=== PATIENT | female | born 1985 | race Caucasian/White ===

== ENCOUNTER 2016-11-09 17:35 | Emergency (ER) | payer BC, OTHER ==
[~2016-11-09] VITALS: Ht 165.1 cm; Wt 118.9 kg
[2016-11-09 17:40] VITALS: TEMP 36.7; Ht 165.1 cm; Wt 118.9 kg
[2016-11-09] MEDS ORDERED: SODIUM CHLORIDE 0.9% 1000ML 500 ML IV STA (18:25)
[2016-11-09] MEDS ORDERED: ONDANSETRON INJ 2 MG/ML 2 ML VIAL IV STA (18:25)
[2016-11-09] MEDS ORDERED: SODIUM CHLORIDE 0.9% 1000ML 1,000 ML IV STA (18:25)
[2016-11-09 18:48] LABS: BASO % 0.1 %; BASO ABS # 0.01 K/uL (0-0.2); COMPLETE YES; HEMATOCRIT 45.6 % (37-47); IG% 0.2 %; LYMPH % 29.2 %; LYMPH ABS # 2.93 K/uL (1.2-3.4); MEAN CELL VOLUME 86.7 fL (80-100); MEAN CORPUSCULAR HGB CONC 34.6 g/dl (32-36); MEAN PLATELET VOLUME 10.3 fL (7.4-10.4); NEUT % 62.5 %; PLATELET COUNT 247 K/uL (130-400); RED BLOOD COUNT 5.26 M/uL (4.2-5.4); WHITE BLOOD COUNT 10.04 K/uL (4.8-10.8)
--- NOTE | 2016-11-09 18:51 | DIAGNOSTIC IMAGING REPORT ---
CHEST ONE VIEW PORTABLE CLINICAL HISTORY: Abdominal pain. COMPARISON STUDY: No previous studies for comparison. FINDINGS: Lung volumes are normal. Lungs are clear. There is no pneumothorax or pleural effusion. Cardiac size is normal. Mediastinal contours are normal. There is no evidence of pulmonary edema. IMPRESSION: No acute cardiopulmonary findings. Electronically signed by: Gurpreet Gandhi M.D. 11/09/2016 6:50 PM Dictated Date/Time: 11/09/2016 6:49 PM
--- NOTE | 2016-11-09 18:58 | EMERGENCY ROOM VISIT NOTE ---
History Report prepared by Rickie: Abeba Charles Under the Supervision of: Dr. Wilfredo Kevin M.D. First contact with patient: 18:23 Chief Complaint: ABDOMINAL PAIN Stated Complaint: RIGHT FLANK PAIN Nursing Triage Summary: Patient reports right sided abd pain that started approx 15 minutes ago with nausea and vomiting. Patient states she has had problems with her gal bladder in the past. History of Present Illness The patient is a 31 year old female who presents to the Emergency Room with complaints of waxing and waning right upper quadrant abdominal pain starting about an hour and a half ago. She reports intermittent pain radiation to the back. At its worst, she rates a pain intensity of 10/10. She currently rates a pain intensity of 2/10. She also complains of nausea and vomiting. She has worsening symptoms with eating. She has a history of gallstones and reports similar symptoms today. She denies fevers, chills, urinary symptoms, diarrhea, constipation, or any other complaints. She denies any history of abdominal surgeries. Source of History: patient Onset: about an hour and a half ago Position: abdomen (RUQ) Symptom Intensity: 2/10 currently Timing: waxes/wanes Modifying Factors (Worsening): eating Associated Symptoms: + nausea, + vomiting, No chills, No diarrhea, No fevers , No urinary symptoms Review of Systems See HPI for pertinent positives & negatives. A total of 10 systems reviewed and were otherwise negative. Past Medical & Surgical Medical Problems: (1) Asthma (2) Diabetes Family History Diabetes mellitus Hypertension Seizures Social History Smoking Status: Current Every Day Smoker Alcohol Use: occasionally Marital Status: in relationship Housing Status: lives with family Occupation Status: employed Current/Historical Medications Scheduled Ondasetron Odt (Zofran Odt), 4 MG SL Q6H Pantoprazole (Protonix), 20 MG PO DAILY Scheduled PRN Ipratropium [place] (Atrovent Hfa), 2 PUFFS INH Q6 PRN for Wheezing Allergies Coded Allergies: No Known Allergies (Unverified , 11/09/16) Physical Exam Vital Signs Date Time Temp Pulse Resp B/P Pulse Ox O2 Delivery O2 Flow Rate FiO2 11/09/16 19:24 64 18 132/49 98 Room Air 11/09/16 17:40 36.7 83 20 129/77 98 Room Air Physical Exam GENERAL: Patient is in no acute distress. HEENT: No acute trauma, normocephalic atraumatic, mucous membranes moist, no nasal congestion, no scleral icterus. NECK: No stridor, no adenopathy, no meningismus, trachea is midline. LUNGS: Clear to auscultation bilaterally, no wheeze, no rhonchi, breath sounds equal. HEART: Without murmurs gallops or rubs, regular rate and rhythm. ABDOMEN: Soft, moderately tender in the right upper quadrant, bowel sounds positive, no hernias, no peritonitis. EXTREMITIES: No cyanosis or edema, full range of motion of all the joints without pain or difficulty, no signs for acute trauma. NEUROLOGIC: Oriented x 3, no acute motor or sensory deficits, no focal weakness. SKIN: No rash, no jaundice, no diaphoresis. Medical Decision & Procedures ER Provider Diagnostic Interpretation: X ray results and stated below per my interpretation and radiologist interpretation. US results and stated below per my review and radiologist interpretation: CHEST ONE VIEW PORTABLE CLINICAL HISTORY: Abdominal pain. COMPARISON STUDY: No previous studies for comparison. FINDINGS: Lung volumes are normal. Lungs are clear. There is no pneumothorax or pleural effusion. Cardiac size is normal. Mediastinal contours are normal. There is no evidence of pulmonary edema. IMPRESSION: No acute cardiopulmonary findings. Electronically signed by: Gurpreet Gandhi M.D. 11/09/2016 6:50 PM Dictated Date/Time: 11/09/2016 6:49 PM ABDOMINAL ULTRASOUND, RIGHT UPPER QUADRANT HISTORY: Abdominal pain.. COMPARISON: CT of the abdomen and pelvis January 15, 2016 and right upper quadrant ultrasound January 15, 2016. FINDINGS: Liver is sonographically normal. The study is compromised by suboptimal penetration. The pancreatic body is normal. The head and tail are obscured. Borderline dilatation of the common bile duct is unchanged. No definite gallstones are identified. There may be adenomyomatosis of the gallbladder wall. There is no right hydronephrosis. IMPRESSION: 1. Study compromised by suboptimal penetration. 2. No gallstones identified although gallbladder partially obscured. No change in borderline dilatation of the common bile duct. Electronically signed by: Gurpreet Gandhi M.D. 11/09/2016 8:21 PM Dictated Date/Time: 11/09/2016 8:18 PM Laboratory Results 11/09/16 18:36 Red Blood Count 5.26, Mean Corpuscular Volume 86.7, Mean Corpuscular Hemoglobin 30.0, Mean Corpuscular Hemoglobin Concent 34.6, Mean Platelet Volume 10.3, Neutrophils (%) (Auto) 62.5, Lymphocytes (%) (Auto) 29.2, Monocytes (%) (Auto) 6.0, Eosinophils (%) (Auto) 2.0, Basophils (%) (Auto) 0.1, Neutrophils # (Auto) 6.28, Lymphocytes # (Auto) 2.93, Monocytes # (Auto) 0.60, Eosinophils # (Auto) 0.20, Basophils # (Auto) 0.01 11/09/16 18:36 Test 11/09/16 00:00 11/09/16 18:36 Urine Color YELLOW Urine Appearance CLOUDY (CLEAR) Urine pH 5.0 (4.5-7.5) Urine Specific [place] 1.035 (1.000-1.030) Urine Protein NEG (NEG) Urine Glucose (UA) NEG (NEG) Urine Ketones NEG (NEG) Urine Occult Blood NEG (NEG) Urine Nitrite NEG (NEG) Urine Bilirubin NEG (NEG) Urine Urobilinogen NEG (NEG) Urine Leukocyte Esterase NEG (NEG) Urine WBC (Auto) 5-10 /hpf (0-5) Urine RBC (Auto) 0-4 /hpf (0-4) Urine Hyaline Casts (Auto) 5-10 /lpf (0-5) Urine Epithelial Cells (Auto) >30 /lpf (0-5) Urine Bacteria (Auto) 1+ (NEG) White Blood Count 10.04 K/uL (4.8-10.8) Red Blood Count 5.26 M/uL (4.2-5.4) Hemoglobin 15.8 g/dL (12.0-16.0) Hematocrit 45.6 % (37-47) Mean Corpuscular Volume 86.7 fL (80-100) Mean Corpuscular Hemoglobin 30.0 pg (25-34) Mean Corpuscular Hemoglobin Concent 34.6 g/dl (32-36) Platelet Count 247 K/uL (130-400) Mean Platelet Volume 10.3 fL (7.4-10.4) Neutrophils (%) (Auto) 62.5 % Lymphocytes (%) (Auto) 29.2 % Monocytes (%) (Auto) 6.0 % Eosinophils (%) (Auto) 2.0 % Basophils (%) (Auto) 0.1 % Neutrophils # (Auto) 6.28 K/uL (1.4-6.5) Lymphocytes # (Auto) 2.93 K/uL (1.2-3.4) Monocytes # (Auto) 0.60 K/uL (0.11-0.59) Eosinophils # (Auto) 0.20 K/uL (0-0.5) Basophils # (Auto) 0.01 K/uL (0-0.2) RDW Standard Deviation 44.5 fL (36.4-46.3) RDW Coefficient of Variation 14.0 % (11.5-14.5) Immature Granulocyte % (Auto) 0.2 % Immature Granulocyte # (Auto) 0.02 K/uL (0.00-0.02) Anion Gap 6.0 mmol/L (3-11) Est Creatinine Clear Calc Drug Dose 172.1 ml/min Estimated GFR () 138.8 Estimated GFR (Non- 119.8 BUN/Creatinine Ratio 30.5 (10-20) Calcium Level 9.1 mg/dl (8.5-10.1) Total Bilirubin 0.2 mg/dl (0.2-1) Aspartate Amino Transf (AST/SGOT) 32 U/L (15-37) Alanine Aminotransferase (ALT/SGPT) 30 U/L (12-78) Alkaline Phosphatase 79 U/L (45-117) Total Protein 7.3 gm/dl (6.4-8.2) Albumin 3.7 gm/dl (3.4-5.0) Globulin 3.6 gm/dl (2.5-4.0) Albumin/Globulin Ratio 1.0 (0.9-2) Lipase 167 U/L (73-393) Laboratory results reviewed by me. Medications Administered Medications (Trade) Dose Ordered Sig/Awais Route Start Time Stop Time Status Last Admin Dose Admin Sodium Chloride (Nss 1000ml) 500 ml @ 999 mls/hr Q31M STAT IV 11/09/16 18:25 11/09/16 18:55 DC 11/09/16 18:44 999 MLS/HR Ondansetron HCl 4 mg 4 mg NOW STAT IV 11/09/16 18:25 11/09/16 18:30 DC 11/09/16 18:43 4 MG Sodium Chloride (Nss 1000ml) 1,000 ml @ 200 mls/hr Q5H STAT IV 11/09/16 18:25 11/09/16 23:24 11/09/16 18:45 200 MLS/HR ED Course 1822: The patient was evaluated in room B05. A complete history and physical exam was performed. 1824: Sodium Chloride 1000 ml @ 200 mls/hr IV, Zofran Inj 4 mg IV, Sodium Chloride 500 ml @ 999 mls/hr IV 2024: Reevaluated the patient. Discussed results and discharge instructions: She verbalized understanding and agreement. The patient is ready for discharge. Medical Decision Differential diagnosis includes but is not limited to biliary colic, acute cholecystitis, UTI, musculoskeletal pain, hernia, pancreatitis, pneumonia, appendicitis. There is no leukocytosis or concerning anemia. No significant electrolyte abnormality, kidney failure, hepatitis or pancreatitis. Urinalysis shows contamination, no obvious infection. Chest film does not show free air or pneumonia. Gallbladder ultrasound shows no evidence for acute cholecystitis or gallstones. She was not febrile or toxic. There is no peritonitis on exam. The patient was given IV Zofran, IV saline. She did not need anything for pain. The patient looks well and is doing much better. The cause for the pain is unclear. She is being discharged with Protonix for stomach upset, some Zofran for nausea, a bland diet. She will follow with her doctors office in the next few weeks, she can return here for worsening symptoms or if not improving. Impression Primary Impression: RUQ abdominal pain Additional Impression: Vomiting Scribe Attestation The scribe's documentation has been prepared under my direction and personally reviewed by me in its entirety. I confirm that the note above accurately reflects all work, treatment, procedures, and medical decision making performed by me. Departure Information Dispostion Home / Self-Care Prescriptions Ondasetron Odt (ZOFRAN ODT) 4 Mg Tab 4 MG SL Q6H for Nausea, #12 TAB Prov: Wilfredo Kevin M.D. 11/09/16 Pantoprazole (Protonix) 20 Mg Tab 20 MG PO DAILY, #30 TAB Prov: Wilfredo Kevin M.D. 11/09/16 Referrals No Doctor, Assigned (PCP) Forms Call Back Authorization, HOME CARE DOCUMENTATION FORM, IMPORTANT VISIT INFORMATION Patient Instructions My [facility] Additional Instructions see your doctor as scheduled return for fever or worsening symptoms use protonix for the stomach daily zofran 1-2 tab every 6 hours for nausea bland diet---crackers, soup, toast, gatorade testing today was ok as discussed Problem Qualifiers
[2016-11-09 19:01] LABS: BUN/CREATININE RATIO 30.5 (10-20); CALCIUM 9.1 mg/dl (8.5-10.1); CREATININE 0.6 mg/dl (0.60-1.20); POTASSIUM 3.9 mmol/L (3.5-5.1)
[2016-11-09 19:40] LABS: MANUAL MICROSCOPIC REQUIRED? NO; REVIEW REQ? NO; URINE APPEARANCE CLOUDY (CLEAR); URINE BILIRUBIN NEG (NEG); URINE COLOR YELLOW; URINE EPITHELIAL CELL AUTO >30 /lpf (0-5); URINE NITRITE NEG (NEG); URINE SPECIFIC GRAVITY 1.035 (1.000-1.030); UROBILINOGEN NEG (NEG); ZZUR CULT IF INDIC CLEAN CATCH YES
[2016-11-09] MEDS ORDERED: ATRIN INH (19:40)
--- NOTE | 2016-11-09 20:22 | DIAGNOSTIC IMAGING REPORT ---
ABDOMINAL ULTRASOUND, RIGHT UPPER QUADRANT HISTORY: Abdominal pain.. COMPARISON: CT of the abdomen and pelvis January 15, 2016 and right upper quadrant ultrasound January 15, 2016. FINDINGS: Liver is sonographically normal. The study is compromised by suboptimal penetration. The pancreatic body is normal. The head and tail are obscured. Borderline dilatation of the common bile duct is unchanged. No definite gallstones are identified. There may be adenomyomatosis of the gallbladder wall. There is no right hydronephrosis. IMPRESSION: 1. Study compromised by suboptimal penetration. 2. No gallstones identified although gallbladder partially obscured. No change in borderline dilatation of the common bile duct. Electronically signed by: Gurpreet Gandhi M.D. 11/09/2016 8:21 PM Dictated Date/Time: 11/09/2016 8:18 PM
[2016-11-09] MEDS ORDERED: PRT/20 PO (20:30)
[2016-11-09] MEDS ORDERED: ONDA4TAB10 SL (20:30)
[2016-11-09 20:45] VITALS: BP 123/78; PULSE 73; O2SAT 97
[2017-01-31] MEDS ORDERED: OXYC-57 PO (09:56)
== END 2016-11-09 20:46 | disposition home or self-care (01) ==
LOC: C.EDB 17:36
DX: R10.11 Right upper quadrant pain (principal); R11.2 Nausea with vomiting, unspecified; J45.909 Unspecified asthma, uncomplicated; E11.9 Type 2 diabetes mellitus without complications; F17.200 Nicotine dependence, unspecified, uncomplicated; Z83.3 Family history of diabetes mellitus; Z82.49 Family history of ischemic heart disease and other diseases of the circulatory system; Z82.0 Family history of epilepsy and other diseases of the nervous system

== ENCOUNTER → 2017-01-31 | Day surgery (SDC) | payer OTHER ==
[2017-01-26 08:21] VITALS: Ht 165.1 cm; Wt 122.2 kg
--- NOTE | 2017-01-26 08:44 | PAT Medication Instructions ---
Service Date Jan 26, 2017. Current Home Medication List Ipratropium [place] (Atrovent Hfa), 2 PUFFS INH Q6 PRN for Wheezing Medication Instructions For Your Scheduled Surgery - Take the following medications the morning of surgery if needed: Ipratropium [place] (Atrovent Hfa), 2 PUFFS INH Q6 PRN for Wheezing - Take the following medications as scheduled the night before surgery: Ipratropium [place] (Atrovent Hfa), 2 PUFFS INH Q6 PRN for Wheezing Nothing to eat or drink after midnight If you have any questions please call us at [phone] or [phone] or [phone]
[~2017-01-31] VITALS: Ht 165.1 cm; Wt 122.2 kg
[~2017-01-31] MED LIST: ATRIN INH; ATROPINE SULFATE 0.1 MG/ML 5ML SYR IV PRN; BACITRACIN OINT 15 GM TUBE ONE; BUPIVACAINE 0.5 % 5 MG/1 ML MPF 30ML VIAL ONE; CEFAZOLIN 3000 MG/65 ML D5W IV SCH; CEFAZOLIN IV 2,000 MG/60 ML D5W IV ONE; DEXAMETHASONE SOD INJ 4 MG/ML VIAL ONE; EpHEDrine SULFATE INJ 50 MG/ML AMP IV PRN; FENTANYL CITRATE INJ 50 MCG/1 ML 2 ML VIAL ONE; GLYCOPYRROLATE INJ 0.2 MG/ML VIAL ONE; HYDROmorphone INJ 1 MG/ML SYR IV PRN; KETOROLAC TROMETHAMINE 30 MG/ML VIAL ONE; LACTATED RINGER'S 1000ML 1,000 ML IV SCH; LIDOCAINE HCL 1% 20 ML VIAL ONE; LIDOCAINE HCL 2% 2 ML VIAL (20MG/ML) ONE; MIDAZOLAM HCL 1 MG/ML 2ML VIAL ONE; MoRPHine SULFATE 2 MG/ML CARP IV PRN; MoRPHine SULFATE 4 MG/ML 1 ML CARP\\VIAL IV PRN; NEOSTIGMINE METHYLSULFATE 5 MG/5 ML SYR ONE; ONDANSETRON INJ 2 MG/ML 2 ML VIAL IV PRN; ONDANSETRON INJ 2 MG/ML 2 ML VIAL ONE; OXYC-57 PO; OXYCODONE/ACETAMINOPHEN 5-325 TAB PO PRN; PROPOFOL IV EMULSION 10 MG/ML 20 ML VIAL IV ONE; ROCURONIUM BROMIDE 10 MG/ML 5 ML VIAL ONE
[2017-01-31 07:15] VITALS: BP 133/62; PULSE 87; TEMP 37.2; O2SAT 97
--- NOTE | 2017-01-31 07:57 | History & Physical Bridge Note ---
H&P Re-Evaluation Bridge Note: I have examined the patient, reviewed the History & Physical and in the interval since the performance of the History & Physical I have noted the following changes of clinical significance: No changes noted
--- NOTE | 2017-01-31 09:47 | [facility] Post Operative Brief Note ---
Immediate Operative Summary Operative Date Jan 31, 2017. Pre-Operative Diagnosis cholelithiasis; chronic cholecystitis Post-Operative Diagnosis cholelithiasis; chronic cholecystitis Procedure(s) Performed Laparoscopic Cholecystectomy Surgeon Dr. Milvia Yost Nursing Informatics Specialist Surgeon(s) Brisa Hernadez PA-C Estimated Blood Loss 10ML Findings chronic cholecystitis, cholelithiasis Specimens A. Gallbladder Drains none Anesthesia general Complication(s) None Disposition Recovery Room / PACU
--- NOTE | 2017-01-31 09:59 | Discharge Instructions ---
Discharge Instructions Date of Service Jan 31, 2017. Admission Reason for Admission: Cholelithiasis Discharge Discharge Diagnosis / Problem: Cholelithiasis, s/p laparoscopic cholecystectomy Discharge Goals Goal(s): Decrease discomfort Activity Recommendations Activity Limitations: as noted below No heavy lifting over 20 pounds for 2 weeks No strenuous activity until cleared by surgeon walking and light activity is encouraged No driving while taking narcotic pain medication No submerging incisions underwater for 2 weeks Instructions / Follow-Up Instructions / Follow-Up You may shower in 3 days, remove dressings and then shower. Sponge bath and wash hair in meantime. Leave steri strips on incisions for 10 days, they may fall off before that is okay. Follow-up with Dr. Yost in 1 week, please call office at [phone] if you do not already have an appointment Current Hospital Diet Patient's current hospital diet: Discharge Diet Recommended Diet: Regular Diet, Low Fat Diet Procedures Procedures Performed: Laparoscopic Cholecystectomy Pending Studies Studies pending at discharge: no Medical Emergencies . Who to Call and When: Medical Emergencies: If at any time you feel your situation is an emergency, please call 911 immediately. . Non-Emergent Contact Non-Emergency issues call your: Primary Care Provider, Surgeon Call Non-Emergent contact if: you have a fever, temperature is above 101.5, your pain is not controlled, your pain is worsening, wound has increased drainage, wound has increased redness, wound has increased pain . "Provider Documentation" section prepared by Alma Hernadez. . VTE Core Measure Inpt VTE Proph given/why not?: SCD's [place] Drug Monitoring Program Search Results: patient reviewed within database, no issues identified
[2017-01-31] MEDS: FENTANYL CITRATE INJ 50 MCG/1 ML 2 ML VIAL IV PRN ×2 (10:15→10:20)
[2017-01-31 10:45] VITALS: BP 120/68; PULSE 55; TEMP 36.5; O2SAT 95
--- NOTE | 2017-01-31 10:45 | Anesthesiology Progress Note ---
Anesthesia Post Op Note Date & Time Jan 31, 2017 at 10:44 Vital Signs Pain Intensity: 0 Vital Signs Past 12 Hours Date Time Temp Pulse Resp B/P (MAP) Pulse Ox O2 Delivery O2 Flow Rate FiO2 01/31/17 10:35 36.3 59 18 116/55 94 Nasal Cannula 01/31/17 10:25 63 20 129/51 93 Nasal Cannula 01/31/17 10:15 56 16 128/61 100 Mask 10 01/31/17 10:05 58 16 121/72 100 Mask 10 01/31/17 09:58 36.4 57 16 123/87 99 Mask 10 01/31/17 07:15 37.2 87 18 133/62 (85) 97 Room Air Notes Mental Status: alert / awake / arousable, participated in evaluation Pt Amnestic to Procedure: Yes Nausea / Vomiting: adequately controlled Pain: adequately controlled Airway Patency, RR, SpO2: stable & adequate BP & HR: stable & adequate Hydration State: stable & adequate Anesthetic Complications: no major complications apparent
[2017-01-31 11:15] VITALS: BP 106/58; PULSE 54; TEMP 36.8; O2SAT 97
[2017-01-31 11:45] VITALS: BP 112/65; PULSE 66; TEMP 36.7; O2SAT 96
--- NOTE | 2017-02-09 14:24 | [facility] Operative Report ---
Operative Report Operative Date January 31, 2017. Pre-Operative Diagnosis cholelithiasis; chronic cholecystitis Post-Operative Diagnosis cholelithiasis; chronic cholecystitis Procedure(s) Performed Laparoscopic Cholecystectomy Surgeon Dr. Milvia Yost Shell Grader Surgeon(s) Brisa Hernadez PA-C Estimated Blood Loss 10ML Findings cholecystitis, Fluids 1000ml Specimens A. Gallbladder Drains none Anesthesia general Complication(s) None Disposition Recovery Room / PACU Indications Patient is a 31 years old female who presented to his right upper quadrant pain , and patient ultrasound shows chronic cholecystitis cholelithiasis, patient required to do a laparoscopy cholecystectomy possible open possible cholangiogram, I did talk to patient about benefits, risks and alternatives of procedure and indications the risks may including but not limit, such as bleeding, infection, injury or common bile duct, and bowel , may need ERCP , , patient understand she signed informed consent.I answered all questions. Description of Procedure We bring patient to the OR, put the patient superior position, patient receiving ACT on bilateral leg to prevent DVT, and patient received 2 g IV ancef for prophylactic antibiotic, patient received general anesthesia without difficulty, the patient abdomen was appropriate from routine sterile fashion, and after timeout, injections local anesthesia by using 1% lidocaine and 0.5% Marcaine just above umbilical area, then I made small incisions just above the umbilical area, put husan trachor in to connect of CO2 to create pneumoperitoneum for flow rate 6 L/m pressure and nausea more than 14 mmHg. Was indicated and as normal perineal, R Lorenzana sound trocar in conduct of CO2 to create pneumoperitoneal minimally blunted 10 mm camera again look around the abdomen, showing his normal phone the arms of stomach small bowel or large bowel were however there are some omental cover the gallbladder shows chronic cholecystitis, then I put other 3 5 mm trocar on the right upper abdomen. one grasper to hold the base of the gallbladder put a direction towards the diaphragm, other grasper to hold porch of gallbladder to pull lateral to expose trainangle calot, the cyst duct was identified and mobilized common then put 2 5 mg meter mental clip proximal cystic duct, one on distal cyst duct, uses scisor to transsect cyst duct . the cyst artery was identified the I put a total 2 5 mm Mental clip on proximal cyst artery, one on diatal , the transsecte the cyst artery, then I use of Bovie taken down gallbladder without difficulty, check a no active bleeding and no bile leak, using catch bag to pull out gallbladder, then re-connect CO 2 to create pneumoperitoneum again , no active bleeding no bile leak, and then we removed all trochars under direct lesion no active bleeding from trocar site, then the pneumoperitoneum was released, now close his umbilical incision fashion using #1 vicryl [id number] 2 close subcutaneously over using 2-0 vicryl, closed skin by use 4-0 suture, then other 3 5 millimeters trocar site close By Using 4-0 Vicryl, All Instrument Needle Sponge on the Correct time 2 in the Case and Patient Transferred to Recovery Room in Stable condition, the gallbladder Sent to Pathology Patient Tolerated Procedure Well Operative Procedure I Did Talk to Patient and Patient's Family Member Are Positive Finding Procedure of They Understand, I attest to the content of the Intraoperative Record and any orders documented therein. Any exceptions are noted below. I attest to the content of the Intraoperative Record and any orders documented therein. Any exceptions are noted below.
== END | disposition home or self-care (01) ==
LOC: C.ACU 06:41
PROVIDERS: ATTEND Surgery
DX: K80.10 Calculus of gallbladder with chronic cholecystitis without obstruction (principal)